=== PATIENT | female | born 1960 | race Caucasian/White ===

== ENCOUNTER 2025-04-16 13:23 | Outpatient (AMB) | payer OTHER, SELFPAY ==
--- OUTSIDE RECORDS SUMMARY | 2024-10-13 05:00 | XMS_ITS ---
Author Organization [facility] Address [address] [place] [address] Care Team Providers Care Table Games Dual Rate Supervisor Name Role Phone Henri Yao Primary Care Provider Lucila Gallagher Unavailable [phone] Allergies Allergen (clinical drug ingredient) Drug/Non Drug Allergy documented on EMR Reaction Allergy Type Onset Date Status sulfamethoxazole / trimethoprim Bactrim stomach upset Drug Allergy Active ciprofloxacin Cipro Unknown Drug Allergy Act ania erythromycin Erythromycin tongue swelling Drug Allergy Active predniSONE ulcers, palpitations Drug Allergy Active carisoprodol Soma palpitations Drug Allergy A ctive Latex Latex skin rash Allergy Active Medications Medication SIG (Take, Route, Frequency, Duration) Notes Start Date End Date Status Gemtesa 75 MG 1 tablet Orally Once a day Not-Taking Ciclopirox Olamine 0.77 % 1 application Externally Twice a day to skin of feet including between the toes; Duration: 30 days Active Extra Depth Orthopedic Shoes (1 Pair) with Customized Heat Molded Multidensity Innersoles (3 Pair) as directed Dx: NIDDM (E11.9), Hammertoe Foot Deformity (M20.41,M20.42), Preulcerative Skin Lesion(s) (L85.1) 05/30/2024 Active Tylenol 325 MG 1 tablet as needed Orally every 6 hrs Active traMADol HCl 50 MG 1 tablet as needed Orally Once a day Active Omeprazole 20 MG 1 tablet 1/2 to 1 ho ur before morning meal Orally Once a day Active Lisinopril 10 MG 1 tablet Orally Once a day Active Levothyroxine Sodium 50 MCG 1 tablet in the morning on an empty stomach Orally Once a day Active Myrbetriq 50 MG 1 tablet Orally Once a day Active Methenamine Mandelate 1 GM 1 tablet after meals and at bedtime Orally Four times a day Active Actos 30 MG 1 tablet Orally Once a day Active Methotrexate 2.5 MG/ML as directed Orally Active metFORMIN HCl 1000 MG 1 tablet with a me al Orally Once a day Active glipiZIDE 10 MG 1 tablet 30 minutes before breakfast Orally Once a day Active Albuterol Sulfate HFA 108 (90 Base) MCG/ACT 1 puff as needed Inhalation every 4 hrs Active Estradiol Active Acyclovir 400 MG 1 tablet Orally Twic e a day Active Rosuvastatin Calcium 10 MG 1 tablet Orally Once a day Active Encounters Encounter Location Date Provider Diagnosis [facility] [place] [address] [place] [address] 10/13/2024 Lucila Dickey Plan Of Treatment Next Appt Details Provider Name:Lucila hawkins, 04/19/2025 01:45:00 PM, [address] [place] [address], [phone], Provider Name:Lucila hawkins, 05/22/2025 02:45:00 PM, [address] [place] [address], [phone], Progress Notes * GOMEZ PatriceOB:[birth year] (64 yo F)Acc No.[id number]:10/13/2024 Progress Note Patient: Yasmin DUNCAN Maureen Provider: Gil Dickey DPM :1960 A ge:63 Y S ex:Female Date:10/13/2024 Address:[address], [facility] Pcp:Henri Yao Subjective: * Chief Complaints: * * Medical History: A rthritis, Back,Hip,and Knee pain, Cancer, Cataracts, Covid-19, Diabetic, High Blood Pressure, Reflux ( GERD), Measles, Chicken pox, Transfusions, Joint implants/screws, Large T-Cell Leukemia - 2008. * Medications: T aking Estradiol , Taking Rosuvastatin Calcium 10 MG Tablet 1 tablet Orally Once a day , Taking Acyclovir 400 MG Tablet 1 tablet Orally Twice a day , Taking Albuterol Sulfate HFA 108 (90 Base) MCG/ACT Aerosol Solution 1 puff as needed Inhalation every 4 hrs , Taking metFORMIN HCl 1000 MG Tablet 1 tablet with a meal Orally Once a day , Taking glipiZIDE 10 MG Tablet 1 tablet 30 minutes before breakfast Orally Once a day , Taking Actos 30 MG Tablet 1 tablet Orally Once a day , Taking Methotrexate 2.5 MG/ML Solution as directed Orally , Taking Lisinopril 10 MG Tablet 1 tablet Orally Once a day , Taking Levothyroxine Sodium 50 MCG Tablet 1 tablet in the morning on an empty stomach Orally Once a day , Taking Omeprazole 20 MG Tablet Delayed Release 1 tablet 1/2 to 1 hour before morning meal Orally Once a day , Taking Myrbetriq 50 MG Tablet Extended Release 24 Hour 1 tablet Orally Once a day , Taking Methenamine Mandelate 1 GM Tablet 1 tablet after meals and at bedtime Orally Four times a day , Taking Tylenol 325 MG Tablet 1 tablet as needed Orally every 6 hrs , Taking traMADol HCl 50 MG Tablet 1 tablet as needed Orally Once a day , Taking Ciclopirox Olamine 0.77 % Cream 1 application Externally Twice a day to skin of feet including between the toes , Taking Extra Depth Orthopedic Shoes (1 Pair) with Customized Heat Molded Multidensity Innersoles (3 Pair) as directed Dx: NIDDM (E11.9), Hammertoe Foot Deformity (M20.41,M20.42), Preulcerative Skin Lesion(s) (L85.1) , Not-Taking/PRN Gemtesa 75 MG Tablet 1 tablet Orally Once a day * Allergies: E rythromycin: tongue swelling, Cipro, Bactrim: stomach upset, Latex: skin rash, predniSONE: ulcers, palpitations, Soma: palpitations. Objective: * Vitals: Assessment: Plan: * Treatment: * Images: * The named appointment provid er may or may not be the originator of this progress note, and it is not deemed complete until electronically signed by the appointment provider. Sign off status: Pending * Provider: Gil Dickey DPM Date: 0 10/13/2024 Generated for Oniel schwab/Loida/Karmen on: 06/17/2024 10:04 PM EST
[2025-04-16 13:38] VITALS: BMI 36.9
--- NOTE | 2025-04-16 13:38 | A.PHYSOV ---
Vital Signs 04/16/25 13:38 Height 5 ft 4 in Weight 215 lb BMI 36.9 Intake Visit Reasons: F/U after injection 03/02/2025 Allergies carisoprodol (From Soma) Allergy (Unknown, Verified 04/16/25 13:41) Unknown ciprofloxacin (From Cipro) Allergy (Unknown, Verified 04/16/25 13:41) Unknown erythromycin base Allergy (Unknown, Verified 04/16/25 13:41) Unknown metronidazole (From Flagyl) Allergy (Unknown, Verified 04/16/25 13:41) Unknown HPI Comments Details: History of Present Illness The patient is a 64 year old female presenting for follow-up of chronic low back pain. She reports no improvement in her symptoms, and her last injection provided about 20-25% relief for only one to two weeks. Her current pain is a 6 out of 10, localized to the low back and buttock area, with no radiation into her legs. The patient has a history of back surgery with Dr. Lyn in 2019. Prior to that surgery, she had tried acupuncture and personal carer without success and experienced pain down the front of her legs, limiting her ability to stand for more than 15 minutes. Currently, her pain affects her ability to walk very far. The patient has a prescription for tramadol but does not like to take it. She has a history of sleep apnea and reports taking tramadol occasionally at night if she has trouble sleeping. Pain Description - Location: Low back and buttock area. - Radiation: The pain does not radiate into the legs. - Severity: Current pain level is a 6 out of 10. - Relieving Factors: A recent massage provided some relief. - Functional Limitation: The patient is unable to walk very far. Results - Imaging: - MRI of the lumbar spine from March 25 revealed severe spinal stenosis at L2-L3, neuroforaminal stenosis at L3-L4, and severe neuroforaminal stenosis on the left at L4-L5. Procedure: Right SI joint injection 12/01/2024 80% reduction of her pain for 2-1/2 weeks. Bilateral SI joint injection 03/02/2025 minimal relief PFS Social History (Updated 04/16/25 @ 13:42 by Debbie Andrews MA) Alcohol intake: current Alcohol intake frequency: does not drink Patient Tobacco Use Status: Never used Tobacco Review of Systems Narrative Review of Systems - Musculoskeletal: Reports pain in the low back and buttock area. - Neurological: Denies radiating pain into the legs. - General: Reports inability to walk very far. - Respiratory: Reports a history of sleep apnea. Physical Exam Exam Exam: Physical Exam Lumbar Spine: Examination of the lumbar spine, there is no visible swelling or deformity. She is tender to lower lumbar facets. She has full range of motion of her lumbar spine. She does have an increase in pain with facet loading. Special Tests: Lhermittes sign was negative Heel Toe walk is normal Left straight leg raise: Negative Right straight leg raise: Negative Special tests Smith test is negative Ganslen's test is negative SI Joint compression test negative Dell test negative Piriformis stretch is negative Lower Extremities: Full range of motion bilateral lower extremities. No calf pain or edema. Neuro: Sensation: Intact to lower extremities bilaterally Strength L2 (Psoas): 5/5 on the left and 5/5 on the right. L3 (Quads): 5/5 on the left and 5/5 on the right. L4 (Ant tibialis): 5/5 on the left and 5/5 on the right. L5 (EHL) 5/5 on the left and 5/5 on the right. S1 (Gastroc): 5/5 on the left and 5/5 on the right. DTR L4: (Patellar) Left 1 Right 1 S1: (Achilles) Left 1 Right 1 Babinski Downgoing No pathologic clonus. No involuntary movement. Vital Signs: BMI result Body Mass Index 36.9 Assessment & Plan Assessment & Plan (1) Spinal stenosis: Code(s): M48.00 - Spinal stenosis, site unspecified Category: Medical Qualifiers: Spinal region: lumbar Neurogenic claudication status: with neurogenic claudication Qualified Code(s): M48.062 - Spinal stenosis, lumbar region with neurogenic claudication (2) Lumbar radiculopathy: Code(s): M54.16 - Radiculopathy, lumbar region Category: Medical Plan Pain Management - Analgesia: The patient reports a current pain level of 6/10. - A previous injection provided only 20-25% pain relief for about two weeks. - She has a tramadol prescription which she takes occasionally. - Affect: The patient is bothered by her functional limitations due to pain. - Activities of Daily Living: The patient reports she cannot walk very far. - Aberrant Drug-Related Behaviors: The patient reports she does not like to take her prescribed tramadol. Plan Patient was informed and verbally consented to the use of an ambient scribe for clinic note documentation during this visit. 1. Spinal Stenosis Of Lumbar Region The patient's recent MRI confirms severe spinal stenosis, which is the likely etiology of her chronic low back pain. Previous injections have failed to provide significant or durable relief, and further injections are not recommended. Given the imaging findings and failure of conservative management, a surgical consultation is warranted. A referral will be placed to Dr. Tejada for evaluation, as per the patient's preference due to a prior successful surgery with him. 2. Chronic Low Back Pain The patient's chronic low back pain is secondary to severe spinal stenosis. She has a prescription for tramadol for analgesia, which she may use as needed, though she expresses a reluctance to take it. The primary plan is to pursue a surgical consultation with Dr. Lyn for a more definitive treatment. Discussion Notes I reviewed the patient's MRI results from March 25 which demonstrate severe spinal stenosis at L2-3 and L4-5. I explained that due to the minimal and brief relief from her last injection (20-25% for two weeks), I do not believe further injections would be helpful. We discussed that it does not make sense to continue with injections that are not effective for at least three to six months. I recommended a surgical consultation as the next appropriate step. The patient stated her preference to see Dr. Lyn, her previous surgeon from 2018, and I agreed to place a referral to his office. I advised the patient on the referral process and instructed her to contact our office if she has any difficulty scheduling an appointment. Patient Instructions - We do not recommend any more injections in your back at this time because they have not provided enough pain relief. - We will send a referral for you to see a surgeon, Dr. Lyn, to discuss other options for your back pain. - Dr. Lyn's office will review your MRI and medical records and then call you to schedule an appointment. - Please call our office if you have any trouble getting an appointment scheduled. - You can continue to take tramadol as needed for pain, but be aware of its side effects. Orders: Referrals Neurosurgery Referral M48.00 - Spinal stenosis, site unspecified, M54.16 - Radiculopathy, lumbar region Coding Level of Care Code Tele Est Pt Level 3 (14569) Diagnoses Spinal stenosis of lumbar region with neurogenic claudication M48.062 Spinal region: lumbar Neurogenic claudication status: with neurogenic claudication Lumbar radiculopathy M54.16
--- OUTSIDE RECORDS SUMMARY | 2025-04-16 22:04 | XMS_ITS | Continuity of Care Document ---
Author Organization [place] [facility], [facility] Address [address] [place] [address] Assessment Encounter Date Assessment Date Assessment LastModified by Organization Details LastModified Time 02/02/2025 02/02/2025 64-year-old female presents for reevaluation of hearing loss. Otologic exam is unremarkable today. Audiometric testing is stable when compared to results obtained last year. She was given a copy of her hearing test and will continue to follow-up every 1 to 2 years for repeat hearing test. All questions were answered. [email or web address] Not available 02/02/2025 09:53:13 Plan of Treatment Reminders Order Date Submit Date Provider Last Modified By Organization Details Last Modified Time Details Appointments Establish ed 15 2025 11:15A M JACOBY LARES PA-C Not available Not available Not available Lab None recorded. Referral None recorded. Procedures None recorded. Surgeries None recorded. Imaging None recorded. Medication Orders None recorded. Patient TargetsNo targets recorded. Patient InstructionsNo instructions recorded. Reason for Referral None Reported. Results Created Date Observation Date Name Description Value Unit Range Abnormal Flag Note LastModifiedBy Organization Detail LastModifiedTime 02/03/20 audio gram No observ ation record ed. BARCODE Not Available 2024 10:35:55 Result Notes None recorded. Problems Name Problem SNOMED Code Status Onset Date Resolution Date Notes Provider Name and Address Organization Details Recorded Time Sensorineural hearing loss of bilateral ears 310615653 Active 2023 J CARLOS DURAND , AUD [address] [address], [place], [phone] , [facility] - [facility] 09/26/202 5 09:21:04 Snoring 62195032 Active 2023 KELLEE KENNEDY MD [address] [facility],[address], [address], [place] - [facility] 10:08:57 Problem Notes None recorded. Procedures Surgical History Date Name Laterality Status Provider Name and Address Organization Details Recorded Time 02/03/20 25 Air & Speech Audio with Tymps - 46321, 94387 & 66474 completed ARLETTE MUSE [address] [facility],[address], [address], [place] - [facility] 02/02/2025 09:20:32 02/02/20 24 Comp Audio with Tymps - 60423 & 26192 completed ILIA ELI [place], CCC-A [address] [facility],[address], [address], [place] - [facility] 02/02/2024 09:29:44 repair of musculotendinous cuff of shoulder completed KELLEE Duarte MD [address] [facility],[address], [address], [place] - [facility] 02/02/2024 10:07:31 section completed KELLEE Duarte MD [address] [facility],[address], [address], [place] - [facility] 02/02/2024 10:07:39 lumbar spinal fusion completed KELLEE Duarte MD [address] [facility],[address], [address], [place] - [facility] 02/02/2024 10:07:48 Knee arthroscopy/surgery completed KELLEE Duarte MD [address] [facility],[address], [address], [place] - [facility] 02/02/2024 10:08:04 Imaging Results None recorded. Procedure Notes None recorded. Medical Equipment None Reported. Allergies No known drug allergies Medications Name Sig Start Date Stop Date Status Note LastModified by Organization Details LastModified Time azithromyci n 250 mg tablet TAKE 2 TABLETS BY MOUTH TODAY, THEN TAKE 1 TABLET DAILY FOR 4 DAYS DIRECTED 02/02 completed Not Available Not Available Not Available tramadol 50 mg tablet TAKE 1 TABLET EVERY 6 HOURS BY ORAL ROUTE AFTER MEAL(S) FOR 7 DAYS. 02/02 completed Not Available Not Available Not Available terbinafine HCl 250 mg tablet TAKE 1 TABLET BY MOUTH EVERY DAY 02/02 completed Not Available Not Available Not Available methenamine hippurate 1 gram tablet TAKE 1 TABLET BY MOUTH TWICE A DAY FOR 30 DAYS active Not Available Not Available No t Available levothyroxi ne 50 mcg tablet active Not Available Not Available Not Available lisinopril 10 mg tablet TAKE 1 TABLET BY MOUTH EVERY DAY active Not Available Not Available No t Available omeprazole 20 mg capsule,del ayed release TAKE 1 CAPSULE BY MOUTH TWICE A DAY active Not Available Not Available No t Available codeine 10 mg-guaifene sin 100 mg/5 mL oral liquid TAKE 10 ML (ORAL) EVERY 4 TO 6 HOURS NEEDED FOR COUGH 02/02 completed Not Available Not Available Not Available lisinopril 5 mg tablet TAKE 1 TABLET BY MOUTH EVERY DAY 02/02 completed Not Available Not Available Not Available estradiol 0.01% (0.1 mg/gram) vaginal cream APPLY 1 GM VAGINALLY EVERY WEDNESDAY AND WEDNESDAY USE TWICE WEEKLY active Not Available Not Available No t Available albuterol sulfate HFA 90 mcg/actuati on aerosol inhaler INHALE 2 PUFFS 4 TIMES A DAY active Not Available Not Available No t Available pioglitazon e 30 mg tablet TAKE 1 TABLET BY MOUTH EVERY DAY active Not Available Not Available No t Available rosuvastati n 10 mg tablet TAKE 1 TABLET BY MOUTH EVERY DAY active Not Available Not Available No t Available Myrbetriq 50 mg tablet,exte nded release TAKE 1 TABLET BY MOUTH EVERY DAY DO NOT CRUSH OR CHEW active Not Available Not Available No t Available Accu-Chek Guide test strips AODM 2 E11.9 USE ONCE A DAY active Not Available Not Available No t Available Vitals Date Recorded Body height Body mass index (BMI) Body weight Provider Name and Address Organization Details Last Updated DateTime 02/02/2025 162.56 cm 37.8 kg/m2 17007.32 g Raquel Spencer [place] - [facility] 02/02/2025 09:37:57 Social History None recorded. Functional Status None recorded. Mental Status None recorded. Family History Nothing Reported. Medical History Condition Response Cancer Y Gynecological HistoryNo gynecological history recorded. Obstetrics History GPAL:G 0 P 0 0 0 0 Past Encounters Encounter ID Performer Location Encounter Start Date Encounter Closed Date Diagnosis/Indication Diagnosis SNOMED-CT Code Diagnosis ICD10 Code Diagnosis IMO Codes Diagnosis Note [id number] JACOBY LARES PA-C [facility] [address] [address] 02/02/2025 08:45:40 02/02/2025 11:26:16 Sensorineural hearing loss of bilateral ears 663458620 H90.3 Audiologic al evaluation results: Right ear: Normal sloping to moderately severe sensorineu ral hearing loss with excellent word recognitio n. Left ear: Normal sloping to moderately severe sensorineu ral hearing loss with excellent word recognitio n. Tympanomet ry: Right Ear:Type As Left Ear:Type A Health Concerns Section Related Observation LastModified by Organization Detai ls LastModified Time None Recorded Concern Status LastModified by Organization Details LastModified Time None Recorded Payers Encounter Date Sequence Insurance Name Policy Number Policy Crump Covered Member ID Crump Member ID Guarantor Name 02/02/2025 1 [employer] (MEDICARE REPLACEMENT/A DVANTAGE - PPO) Anel Peace [id number] Anel Peace Notes Date Note Type Note Provider Name and Address Organization Details Recorded Time 02/02/2025 text/html ROS as noted in the HPI 64-year-old female presents for updated audiometric testing. Previously found to have mild high-frequency sensorineural hearing loss. She continues to struggle in crowded environments but otherwise is doing well. LOUIE DELACRUZ MD [address] [place] [address], [place], [address], [facility] - [facility] 02/02/2025 16:48:51 OBGyn Episode No OBEpisode recorded.
--- OUTSIDE RECORDS SUMMARY | 2025-04-16 22:04 | XMS_ITS | Patient Health Record ---
Author Organization [facility] Address [address] [facility] [place], [place] [address] Care Team Providers Care Erp Pm Name Role Phone Henri Yao Primary Care Provider Lucila Gallagher Unavailable [phone] Allergies Allergen (clinical drug ingredient) Drug/Non Drug Allergy documented on EMR Reaction Allergy Type Onset Date Status sulfamethoxazole / trimethoprim Bactrim stomach upset Drug Allergy Active ciprofloxacin Cipro Unknown Drug Allergy Act ania erythromycin Erythromycin tongue swelling Drug Allergy Active predniSONE ulcers, palpitations Drug Allergy Active carisoprodol Soma palpitations Drug Allergy A ctive Latex Latex skin rash Allergy Active Results Component Value Reference Range Notes HEMOGLOBIN A1C (GLYCOHEMOGLO BIN) Reviewed date:08/04/2024 12:16:14 PM Interpretation: Performing Lab: Notes/Report: HEMOGLOBIN A1C % (HH) 6.7 HEMOGLOBIN A1C (GLYCOHEMOGLO BIN) Reviewed date:11/07/2024 01:16:05 PM Interpretation: Performing Lab: Notes/Report: HEMOGLOBIN A1C % (HH) 7.0 HEMOGLOBIN A1C (GLYCOHEMOGLO BIN) Reviewed date:02/16/2025 12:30:39 PM Interpretation: Performing Lab: Notes/Report: HEMOGLOBIN A1C % (HH) 7.4 Reason For Referral No Information Medications Medication SIG (Take, Route, Frequency, Duration) Notes Start Date End Date Status Acyclovir 400 MG 1 tablet Orally Twic e a day Active Tylenol 325 MG 1 tablet as needed Orally every 6 hrs Active Albuterol Sulfate HFA 108 (90 Base) MCG/ACT 1 puff as needed Inhalation every 4 hrs Active traMADol HCl 50 MG 1 tablet as needed Orally Once a day Active metFORMIN HCl 1000 MG 1 tablet with a me al Orally Once a day Active Ciclopirox Olamine 0.77 % 1 application Externally Twice a day to skin of feet including between the toes; Duration: 30 days Active glipiZIDE 10 MG 1 tablet 30 minutes before breakfast Orally Once a day Active Extra Depth Orthopedic Shoes (1 Pair) with Customized Heat Molded Multidensity Innersoles (3 Pair) as directed Dx: NIDDM (E11.9), Hammertoe Foot Deformity (M20.41,M20.42), Preulcerative Skin Lesion(s) (L85.1) 05/30/2024 Active Levothyroxine Sodium 50 MCG 1 tablet in the morning on an empty stomach Orally Once a day Active Mounjaro 7.5 MG/0.5ML as directed Subcut aneous Once a week Active Omeprazole 20 MG 1 tablet 1/2 to 1 ho ur before morning meal Orally Once a day Active Estradiol Active Myrbetriq 50 MG 1 tablet Orally Once a day Active Rosuvastatin Calcium 10 MG 1 tablet Orally Once a day Active Methenamine Mandelate 1 GM 1 tablet after meals and at bedtime Orally Four times a day Active Actos 30 MG 1 tablet Orally Once a day Active Cephalexin 500 MG 1 capsule Orally twi ce a day; Duration: 5 days Active Methotrexate 2.5 MG/ML as directed Orally Active Gemtesa 75 MG 1 tablet Orally Once a day Not-Taking Lisinopril 10 MG 1 tablet Orally Once a day Active Immunizations Vaccine Route Administration Date Status Comme nts Influenza Unknown 01/09/2024 Administered Influenza Unknown 01/18/2025 Administered Social History Tobacco Use: Social History Observation Description Date Details (start date - stop date) Never Smoker NA - NA Tobacco use other than smoking: Question Answer Notes Are you an other tobacco user? No Tobacco Control (Standard) Question Answer Notes Tobacco use: Nonsmoker Additional Findings: Tobacco non-user Current no nsmoker AUDIT-C (Standard) Question Answer Notes Did you have a drink containing alcohol in the p ast year? No Points 0 Interpretation Negative Problems Problem Type SNOMED Code ICD Code Onset Dates Problem Status W/U Status Risk Notes Problem Type II diabetes mellitus without complication (744294901) Type 2 diabetes mellitus without complication (E11.9) Active confirmed Vital Signs Blood pressure diastolic 82 mm Hg 03/27/2025 Height 5ft4in in 03/27/2025 Blood pressure systolic 120 mm Hg 03/27/2025 Weight 214 lbs 03/27/2025 BMI 36.73 kg/m2 03/27/2025 Encounters Encounter Location Date Provider Diagnosis [address] [address] 05/30/2024 Lucila Perica Type 2 diabetes mellitus without complication E11.9 ; Tinea pedis of both feet B35.3 ; Other hammer toe(s) (acquired), right foot M20.41 and Other hammer toe(s) (acquired), left foot M20.[address] [address] 08/04/2024 Lucila Perica Type 2 diabetes mellitus without complication E11.9 ; Tinea pedis of both feet B35.3 ; Other hammer toe(s) (acquired), right foot M20.41 and Other hammer toe(s) (acquired), left foot M20.[address] [address] 11/07/2024 Lucila Perica Type 2 diabetes mellitus without complication E11.[address] [address] 02/16/2025 Lucila Perica Pain in left toe(s) M79.675 ; Cellulitis of toe of left foot L03.032 ; Ingrown nail L60.0 and Type 2 diabetes mellitus without complication E11.[address] [address] 03/27/2025 Lucila Perica Pain in left foot M79.672 ; Calcaneal spur, left foot M77.32 ; Interstitial myositis of left foot M60.172 ; Bursitis of left foot M77.52 ; Type 2 diabetes mellitus without complication E11.9 and Plantar fasciitis M72.[address] [address] 05/23/2024 Lucila Perica [address] [address] 05/23/2024 Lucila Holdena [facility] [address] [place] [address] 05/24/2024 Lucila Perica [facility] [address] [place] [address] 06/22/2024 Lucila Perica [facility] [address] [place] [address] 08/15/2024 Lucila Perica [facility] [address] [place] [address] 01/29/2025 Lucila Perica [facility] [place] [address] [facility] [address] [place] [address] 03/26/2025 Lucila Dickey [facility] Encounter Date Diagnosis (ICD Code) Assessment Notes Treatment Notes Treatment Clinical Notes Section Notes 05/30/2024 Type 2 diabetes mellitus without complication (ICD-10 - E11.9) 05/30/2024 Tinea pedis of both feet (ICD-10 - B35.3) 08/04/2024 Type 2 diabetes mellitus without complication (ICD-10 - E11.9) 08/04/2024 Tinea pedis of both feet (ICD-10 - B35.3) 11/07/2024 Type 2 diabetes mellitus without complication (ICD-10 - E11.9) 02/16/2025 Pain in left toe(s) (ICD-10 - M79.675) 02/16/2025 Cellulitis of toe of left foot (ICD-10 - L03.032) 03/27/2025 Pain in left foot (ICD-10 - M79.672) 03/27/2025 Calcaneal spur, left foot (ICD-10 - M77.32) 05/30/2024 Other hammer toe(s) (acquired), right foot (ICD-10 - M20.41) Patient Educated with: DIABETIC FOOT CARE INSTRUCTIONS. pdf (DIABETIC FOOT CARE INSTRUCTIONS. pdf) 02/16/2025 Ingrown nail (ICD-10 - L60.0) Patient Educated with: WOUND CARE INSTRUCTIONS. pdf (WOUND CARE INSTRUCTIONS. pdf) 08/04/2024 Other hammer toe(s) (acquired), right foot (ICD-10 - M20.41) 08/04/2024 Other hammer toe(s) (acquired), left foot (ICD-10 - M20.42) 02/16/2025 Type 2 diabetes mellitus without complication (ICD-10 - E11.9) 05/30/2024 Other hammer toe(s) (acquired), left foot (ICD-10 - M20.42) 03/27/2025 Interstitial myositis of left foot (ICD-10 - M60.172) 03/27/2025 Bursitis of left foot (ICD-10 - M77.52) 03/27/2025 Type 2 diabetes mellitus without complication (ICD-10 - E11.9) 03/27/2025 Plantar fasciitis (ICD-10 - M72.2) Resistant to previous conservative treatment Patient Educated with: RICE THERAPY.pdf (RICE THERAPY.pdf) Patient Educated with: INJECTIONTHER APY.pdf (INJECTIONTHE RAPY.pdf) 03/27/2025 Other Patient Educated with: HEEL CORD STRETCHES.pdf (HEEL CORD STRETCHES.pdf ) Patient Educated with: RICE THERAPY.pdf (RICE THERAPY.pdf) Plan Of Treatment Pending Test Test Name Order Date X ray : Foot, left 3V 03/27/2025 Next Appt Details Provider Name:Lucila hawkins, 04/19/2025 01:45:00 PM, [address] [place] [address], [address], Provider Name:Lucila Cipriano hawkins, 05/22/2025 02:45:00 PM, [address] [place], [address], Insurance Providers Payer Name Payer Address Payer Phone Subscriber Number Group Number Insured Name Patient Relationship to Insured Coverage Start Date Coverage End Date [employer] Claims [address] [address] [place] [address] [id number] Anel Peace Self - patient is the insured 4 Medical (General) History Medical History History ICD Code Arthritis Back,Hip,and Knee pain Cancer Cataracts covid-19 Diabetic High Blood Pressure Reflux ( GERD) Measles Chicken pox Transfusions Joint implants/screws Large T-Cell Leukemia - 2008 Surgical History Surgery Date(Month/Year) Rotator Cuff, Left 03/2013 11/1998 Left Knee 01/2009 cataract surgery 03/2024
--- OUTSIDE RECORDS SUMMARY | 2025-04-16 22:04 | XMS_ITS | Clinical Summary ---
Author Organization [facility] Address [address] [place] [address] Care Team Providers Care Configuration Management Architect Name Role Phone Dinh Yao MD Primary Care Provider [phone] Social History Tobacco Use Types Packs/Day Years Used Date Smoking Tobacco: Never Assessed Comments Unknown Sex and Gender Information Value Date Recorded Sex Assigned at Not on file Legal Sex Female 11:50 PM EST Gender Identity Not on file Sexual Orientation Not on file Last Filed Vital Signs Vital Sign Reading Time Taken Comments Blood Pressure 130/90 01/26/2022 1:09 PM EDT Pulse 79 01/26/2022 1:09 PM EDT Temperature - - Respiratory Rate - - Oxygen Saturation - - Inhaled Oxygen Concentration - - Weight - - Height - - Body Mass Index - - Plan of Treatment Health Maintenance Due Date Last Done Comments Breast Cancer Screening 1958 Colorectal Cancer Screening: Colonoscopy 1960 Diabetes: Annual GFR (Glomerular Filtration Rate) 1958 Diabetes: Annual Foot Exam 1968 Diabetes: Annual Retina Eye Exam 1968 Cholesterol Screening (Lipid Panel) 04/12/2022 Hepatitis C Screening 04/12/2022 Osteoporosis Screening (Bone Density Screening) 04/12/2022 Social Influencers of Health Screening 04/12/2022 Diabetes: Annual Urine Albumin-Creatinine Ratio (uACR) 04/24/2022 Diabetes: Blood Sugar Control Test (HGBA1C) 04/24/2022 Falls Risk Assessment 12/03/2023 Depression Screening 05/10/2024 Hypertension/CHF/CAD Annual BMP Blood Test 11/25/2024 COVID-19 Vaccine ( season) 2025 01/24/2024, 08/29/2021, 12/25/2020, Additional history exists Influenza Vaccine (#1) 2025 4, 02/05/2023, 02/12/2022, Additional history exists DTaP,Tdap,and Td Vaccines (4 - Td or Tdap) 08/26/2030 08/26/2020, 07/25/2010, 12/15/2001 Zoster Vaccines Completed 10/25/2019, 07/08, 07/22/2019 Pneumococcal Vaccine: 50+ Years Completed 06/15/2022, 07/18/2008 RSV Immunization Adult Patients Completed 05/24/2023 HIB Vaccines Aged Out No longer eligi ble based on patient's age to complete this topic HPV Vaccines Aged Out No longer eligi ble based on patient's age to complete this topic Hepatitis A Vaccines Aged Out No long er eligible based on patient's age to complete this topic Hepatitis B Vaccines Aged Out No long er eligible based on patient's age to complete this topic IPV Vaccines Aged Out No longer eligi ble based on patient's age to complete this topic MMR Vaccines Aged Out No longer eligi ble based on patient's age to complete this topic Meningococcal ACWY Vaccine Aged Out N o longer eligible based on patient's age to complete this topic Meningococcal B Vaccine Aged Out No l onger eligible based on patient's age to complete this topic RSV Immunization Patients Under 20 months Aged Out No longer eligible based on patient's age to complete this topic Varicella Vaccines Aged Out No longer eligible based on patient's age to complete this topic Care Teams Configuration Management Architect Relationship Specialty Start Date End Date Dinh Yao MD [address] [place] [address] PCP - General Internal Medicine 01/26/22
--- OUTSIDE RECORDS SUMMARY | 2025-04-16 22:04 | XMS_ITS | Data Portability ---
Author Organization [place] [facility], Allergy Address [address] [address] Assessment Encounter Date Assessment Date Assessment LastModified by Organization Details LastModified Time 02/02/2024 02/02/2024 Hx of ETD. No fluid today. Mild SNHL suggest observation. Given snoring and high BMI suggest PSG [email or web address] Not available 02/02/2024 10:10:11 02/02/2025 02/02/2025 64-year-old female presents for reevaluation of hearing loss. Otologic exam is unremarkable today. Audiometric testing is stable when compared to results obtained last year. She was given a copy of her hearing test and will continue to follow-up every 1 to 2 years for repeat hearing test. All questions were answered. [email or web address] Not available 02/02/2025 09:53:13 Plan of Treatment Reminders Order Date Submit Date Provider Last Modified By Organization Details Last Modified Time Details Appointments Establish ed 15 2025 11:15A M JACOBY LARES PA-C Not available Not available Not available Lab None recorded. Referral None recorded. Procedures polysomno graphy, diagnosti c (PROC) 2023 024 [email or web address] [facility], [address] [facility], [place], [address], 02/28/2024 15:01:03 Surgeries None recorded. Imaging None recorded. Medication Orders None recorded. Patient TargetsNo targets recorded. Patient InstructionsNo instructions recorded. Reason for Referral None Reported. Results Created Date Observation Date Name Description Value Unit Range Abnormal Flag Note LastModifiedBy Organization Detail LastModifiedTime 02/03/20 24 audio gram No observ ation record ed. Not Available 01/09 14:19:26 02/03/20 25 audio gram No observ ation record ed. BARCODE Not Available 2024 10:35:55 Result Notes None recorded. Problems Name Problem SNOMED Code Status Onset Date Resolution Date Notes Provider Name and Address Organization Details Recorded Time Sensorineural hearing loss of bilateral ears 445430411 Active 2023 ARLETTE MUSE [address] [facility],[address], [address], [facility] - [facility] 5 09:21:04 Snoring 77265596 Active 2023 KELLEE KENNEDY MD [address] [facility],[address], [address], [facility] - [facility] 4 10:08:57 Problem Notes None recorded. Procedures Surgical History Date Name Laterality Status Provider Name and Address Organization Details Recorded Time 02/03/20 25 Air & Speech Audio with Tymps - 08512, 27696 & 75647 completed ARLETTE MUSE [address] [facility],[address], [address], [facility] - [facility] 02/02/2025 09:20:32 02/02/20 24 Comp Audio with Tymps - 99916 & 52827 completed ILIA ELI MA, CCC-A [address] [facility],[address], [address], [place] - [facility] 02/02/2024 09:29:44 repair of musculotendinous cuff of shoulder completed KELLEE Duarte MD [address] [facility],[address], [address], [place] - [facility] 02/02/2024 10:07:31 section completed [facility] MD [address] [facility],[address], [address], [place] - [facility] 02/02/2024 10:07:39 lumbar spinal fusion completed KELLEE Duarte MD [address] [facility],[place] [address], [place], [address], [place] [facility] 02/02/2024 10:07:48 Knee arthroscopy/surgery completed KELLEE Duarte MD [address] [facility] [address], [place], [address], [facility] - [facility] 02/02/2024 10:08:04 Imaging Results None recorded. Procedure [...] and Address Organization Details Last Updated DateTime 02/02/2024 162.56 cm 38.6 kg/m2 471374.28 g Franciscoshruthi Reveles [place] - [facility] 02/02/2024 09:42:52 Date Recorded Body height Body mass index (BMI) Body weight Provider Name and Address Organization Details Last Updated DateTime 02/02/2025 162.56 cm 37.8 kg/m2 95694.32 g Raquel Tj [facility] 02/02/2025 09:37:57 Social History None recorded. Functional Status None recorded. Mental Status None recorded. Family History Nothing Reported. Medical History Condition Response Cancer Y Gynecological HistoryNo gynecological history recorded. Obstetrics History GPAL:G 0 P 0 0 0 0 Past Encounters Encounter ID Performer Location Encounter Start Date Encounter Closed Date Diagnosis/Indication Diagnosis SNOMED-CT Code Diagnosis ICD10 Code Diagnosis IMO Codes Diagnosis Note [id number] KELLEE HAYES MD [facility] [address] [address] 02/02/2024 08:48:21 02/02/2024 10:13:04 Sensorineural hearing loss of bilateral ears 113170539 H90.3 Snoring 77161657 R06.83 Body mass index 30+ - obesity 663441804 Z68.38 [id number] ILIA ELI MA, CCC-A [facility] [address] [address] 02/02/2024 08:48:21 02/02/2024 10:13:04 Sensorineural hearing loss of bilateral ears 099810260 H90.3 Audiologic al evaluation results: Right ear: Normal hearing thru 3000Hz sloping to a mild-moder ate SNHL with excellent word recognitio n. Left ear: Normal hearing thru 3000Hz sloping to a mild SNHL with excellent word recognitio n. Tympanomet ry: Right Ear:Type A Left Ear:Type A [id number] JACOBY LARES PA-C [facility] [address] [place] [address] 02/02/2025 08:45:40 02/02/2025 11:26:16 Sensorineural hearing loss of bilateral ears 871155260 H90.3 Audiologic al evaluation results: Right ear: [...] by Organization Details LastModified Time None Recorded Advance Directives Directive None Recorded Payers Insurance Date Sequence Insurance Name Policy Number Policy Crump Covered Member ID Crump Member ID Guarantor Name 02/02/2025 1 [place]: [employer] Anel Peace [id number] Anel Peace 02/12/2025 1 [employer] (MEDICARE REPLACEMENT/A DVANTAGE - PPO) Anel Peace [id number] Anel Peace Notes Date Note Type Note Provider Name and Address Organization Details Recorded Time 02/02/2024 text/html URI/bronchitis and had blocked ears. Eventually resolved. 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 Previously found to have mild high-frequency sensorineural hearing loss. She continues to struggle in crowded environments but otherwise is doing well. LOUIE DELACRUZ MD [address] [place] [address],[place] [address], [place], [address], [facility] - [facility] 02/02/2025 16:48:51 OBGyn Episode No OBEpisode recorded.
== END 2025-04-16 13:58 | disposition home or self-care (01) ==
LOC: HO.HPHYS 13:23
PROVIDERS: PCP Internal Medicine; Visit Provider Physician Assistant
DX: M48.062 Spinal stenosis, lumbar region with neurogenic claudication (principal); M54.16 Radiculopathy, lumbar region
CPT/HCPCS: 99213